=== PATIENT | female | born 1945 | race Caucasian/White ===

== ENCOUNTER 2024-11-01 11:33 | Emergency (ER) | payer MEDICARE, SELFPAY ==
--- NOTE | 2024-11-01 11:34 | ED_ITS ---
HPI - Back Pain/Injury General Chief Complaint: Urogenital-Female Stated Complaint: lower back pain Time Seen by Provider: 11/01/24 11:34 Source: patient Mode of arrival: ambulatory Limitations: no limitations History of Present Illness HPI Narrative: La is a 79-year-old female patient presenting to the clinic today with complaints of right left flank pain, burning with urination, urinary frequency, urinary urgency, and also foul urine odor x2 days. She reports no known fevers, chills, body aches, nausea, vomiting, or diarrhea. Has not noticed any blood in her urine. No history kidney stones in the past. Has taken some Advil for her symptoms. Pain was initially 6/10 before taking the Advil. Related Data Allergies Allergy/AdvReac Type Severity Reaction Status Date / Time codeine Allergy Mild Nausea Verified 11/01/24 11:47 Review of Systems Review of Systems: Pertinent positives per HPI. Patient denies any fever, chills, rash, headache, visual changes, dizziness, cough, runny nose, sore throat, shortness of breath, chest pain, palpitations, nausea, vomiting, diarrhea, constipation, abdominal pain PMFSH Comments At the time of my signature, I reviewed and agree with the nursing past medical, surgical, social, and family history. There is no relevant family history pertinent to the patient complaint. Exam Narrative: General: Well-developed, well nourished, in no apparent distress. Head: Normocephalic, atraumatic. Cardio: Regular rate and rhythm, s1 and s2 normal, no murmur appreciated. Resp: Clear to auscultation bilaterally, no rhonchi, rales, wheezing or rubs. Abdomen: Soft, pliable, bowel sounds present in all quadrants, non-tender to palpation, no organomegly, right CVAT tenderness. Course Course Emergency Course: Portions of this record may have been created with voice recognition software. Level of Care: Express Care Visit Vital Signs Vital signs: Vital Signs Temperature 36.4 C 11/01/24 11:40 Pulse Rate 86 11/01/24 11:40 Respiratory Rate 20 11/01/24 11:40 Blood Pressure 148/100 H 11/01/24 11:40 Pulse Oximetry 96 11/01/24 11:40 Oxygen Delivery Room Air 11/01/24 11:40 Temperature 36.4 C 11/01/24 11:40 Pulse Rate 86 11/01/24 11:40 Respiratory Rate 20 11/01/24 11:40 Blood Pressure 148/100 H 11/01/24 11:40 Pulse Oximetry 96 11/01/24 11:40 Oxygen Delivery Room Air 11/01/24 11:40 Vital signs reviewed Transfer Transfered to: [facility] Transportation: Other (Private car) Transfer rationale: Hyperglycemia/glucosuria- right flank pain Accepting physician: Dr. Lowery Transfer comments: Private car MDM - Back Pain/Injury MDM Narrative Medical decision making narrative: At the time of visit patient is resting comfortably on the exam table. Patient appears to be nontoxic. Complaints of right left flank pain, burning with urination, urinary frequency, urinary urgency, and also foul urine odor x2 days. She reports no known fevers, chills, body aches, nausea, vomiting, or diarrhea. Has not noticed any blood in her urine. No history kidney stones in the past. Has taken some Advil for her symptoms. Pain was initially 6/10 before taking the Advil. On exam patient has mild right CVAT bowel sounds present all 4 quadrants, no abdomen tender to palpation. UA dip ordered. Urinalysis shows 2+ glucose. When asked the patient if she is diabetic she said over a year ago she was tested and her blood sugar was 300 but she controlled the diabetes with diet and got her blood sugars down to 140. States she has gone back to her old diet and states her blood sugars have been high. She is not currently on any anti diabetic medications. Bedside glucose test ordered. Labs: UA dip shows 2+ glucose. Bedside glucose 477 Plan: Patient has right flank pain with glucosuria and hyperglycemia. Recommend transfer to the ER for further evaluation patient agrees to transfer. Patient would like to go to [facility]. Report called to nurse and Dr. Lowery accepts patient for transfer. Patient to transfer via private car. Differential Diagnosis Differential diagnosis: Likely lumbar radiculopathy, sciatica, strain of lumbar region, renal colic, pyelonephritis and other (Hyperglycemia, glucosuria, UTI) Discharge Plan Discharge Clinical Impression: Hyperglycemia, Elevated serum glucose with glucosuria, Acute right flank pain Patient Disposition: Acute Care Hospital Condition: Stable Instructions: Antibiotic Form Patient Language: Mohawk Follow-up/Referrals: Reed,Edwin Barros MD [Primary Care Provider, Unknown] Time of Disposition: 12:20 Quality NIHSS Nursing Documentation ED NIHSS nursing documentation: reviewed/agree
[2024-11-01 11:40] VITALS: BP 148/100; PULSE 86; RESP 20; TEMP 36.4; O2SAT 96
--- OUTSIDE RECORDS SUMMARY | 2024-11-01 11:54 | XMS_ITS | Clinical Summary ---
Author Organization [facility] Address [address] [place] [address] Phone Care Team Providers Care Corporate Director Of Pharmacy Name Role Phone Edwin Del Rio MD Primary Care Provider [phone] Bill Reveles MD Unavailable [phone] Eber Gonzalez MD Unavailable [phone] Allergies Active Allergy Reactions Criticality Noted Date Comments Codeine Itching 05/30/2015 Medications Cholecalciferol (VITAMIN D PO) Take by mouth daily. Active Calcium Carbonate-Vitami n D (CALTRATE 600+D PO) Take by mouth daily. Active pravastatin (PRAVACHOL) 40 MG Tablet Take 40 mg by mouth daily. Active PARoxetine (PAXIL) 20 MG Tablet Take 20 mg by mouth daily. Active Aspirin 81 MG Tablet Take 81 mg by mouth daily. Active anastrozole (ARIMIDEX) 1 MG Tablet Take 1 mg by mouth daily. Active lisinopril (PRINIVIL, ZESTRIL) 40 MG Tablet Take 40 mg by mouth. Active Active Problems Problem Noted Date Diagnosed Date History of cancer chemotherapy 05/27/2017 Overview (05/27/2017): She was initially treated with 6 cycles of Rituxan, Cytoxan, vincristine and prednisone beginning late 2008 and was then placed on maintenance therapy with Rituxan. She has remained DMITRY since Rituxan maintenance therapy was completed 08/23/2011. History of immunotherapy 05/27/2017 Overview (05/27/2017): Rituxan with Cytoxan, vincristine and prednisone beginning late 2008 followed by maintenance Rituxan which she completed 08/23/2011. History of hormone therapy 05/27/2017 Overview (05/27/2017): Tamoxifen August 2010 through August 2015 and September 2016 through February 2017. History of partial mastectomy of left breast Overview (10/09/2016): 05/28/2010 Prophylactic use of anastrozole (Arimidex) 10/09 Overview (03/04/2019): Started February 2017 and replaced tamoxifen which had been started September 2016. History of ductal carcinoma in situ (DCIS) of [facility] 10/09/2016 Overview (10/09/2016): DCIS of her right breast that opted for breast conserving therapy and completed radiotherapy to her right breast 09/06/2016. She was then placed on tamoxifen once again September 2016. Obesity (BMI 30.0-34.9) 10/09/2016 History of therapeutic radiation 07/18/2016 Overview (10/09/2016): Completed left breast radiotherapy 08/07/2010. Completed right breast radiotherapy 09/06/2016. 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 She was then placed on Tamoxifen for 5 years which she completed August 2015. History of basal cell carcinoma of skin 05/30/19 16 Overview (05/27/2017): Left nasal ala 03/2015 treated with surgery alone. 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 She was initially treated with 6 cycles of Rituxan, Cytoxan, vincristine and prednisone and then placed on maintenance therapy with Rituxan. She has remained DMITRY since Rituxan maintenance therapy was completed 08/23/2011. Stargardt's disease Resolved Problems Problem Noted Date Diagnosed Date Resolved Date History of partial mastectomy of right breast 10/10/19 17 03/04/2019 Overview (10/09/2016): 06/14/2016 Acute radiation dermatitis 09/06/2016 0 10/09/2016 Breast cancer of upper-outer quadrant of right female breast 08/12/2016 10/09/2016 Cancer Staging:Clinical stage from 07/18/2016:Stage 0(Tis (DCIS), N0, M0) - Signed by Bill Reveles MD on 08/12/2016 Pathologic stage from 07/18/2016:Stage 0(Tis (DCIS), N0, cM0) - Signed by Bill Reveles MD on 08/12/2016 Immunizations Immunization Administration Dates Next Due Covid-19, Mrna, Lnp-s, PF, 1 00 mcg/0.5 mL Dose (Moderna) 05/09/2020,03/30/2020 Family History Medical History Relation Name Comments Congestive Heart Failure Father Heart Attack Father Skin Cancer Father Diabetes Mother Osteoporosis Sister Relation Name Status Comments Father Mother Sister Alive Social History Tobacco Use Types Packs/Day Years Used Date Smoking Tobacco: Never Smokeless Tobacco: Never Alcohol Use Standard Drinks/Week Comments Yes 0 (1 standard drink = 0.6 oz pure alcohol) Rare occasional social situations. Sexually Active Control Partners Comments Never Comments No Sex and Gender Information Value Date Recorded Sex Assigned at Not on file Legal Sex Female 12:43 AM CDT Gender Identity Not on file Sexual Orientation Not on file Last Filed Vital Signs Vital Sign Reading Time Taken Comments Blood Pressure 189/92 03/04/2019 3:14 PM PRINTER'S ASSISTANT Pulse 81 03/04/2019 3:14 PM PRINTER'S ASSISTANT Temperature 37.2 C (99 F) 03/04/2019 3:14 PM PRINTER'S ASSISTANT Respiratory Rate 20 03/04/2019 3:14 PM PRINTER'S ASSISTANT Oxygen Saturation 97% 03/04/2019 3:14 PM PRINTER'S ASSISTANT Inhaled Oxygen Concentration - - Weight 80.2 kg (176 lb 12.8 oz) 03/04/2019 3:14 PM PRINTER'S ASSISTANT Height 160 cm (5' 3) 03/04/2019 3:14 PM PRINTER'S ASSISTANT Body Mass Index 31.32 03/04/2019 3:14 PM PRINTER'S ASSISTANT Plan of Treatment Health Maintenance Due Date Last Done Comments Hepatitis C Virus (HCV) Screening 1945 Pneumococcal Immunization (50+ years) (2 of 2 - PPSV23, PCV20, or PCV21) 01/31/2017 12/06/2016 Discussion re Stopping Mammograms 2021 Respiratory Syncytial Virus (RSV) Immunization (Adult) (1 - 1-dose 75+ series) 2021 DEXA Bone Density 04/11/2022 04/11/2020 Mammogram 03/18/2024 03/18/2023, 01/24, 02/12/2021, Additional history exists Influenza Immunization (#1) 10/25/202410/25, 11/26/2019, 12/18/2018, Additional history exists SARS-COV-2 Immunization ( season) 2024 12/03/2022, 05/24/2021, 05/01/2021, Additional history exists DTaP/Tdap/Td Immunization Discontinued 06/18/2012 TdaP Immunization Completed 06/18/2012 Pneumococcal Immunization Combined Discontinued 12/06/2016 Zoster Immunization Completed 12/10/2022, 3 Hepatitis B Immunization Aged Out No longer eligible based on patient's age to complete this topic Human Papillomavirus (HPV) Immunization Aged Out No longer eligible based on patient's age to complete this topic Meningococcal Immunization (ACWY) Aged Out No longer eligible based on patient's age to complete this topic Rotavirus Immunization Aged Out No lo nger eligible based on patient's age to complete this topic Procedures Procedure Name Priority Date/Time Associated Diagnosis Comments JENNI SCREENING BILATERAL DIGI MELINDA W CAD W EMERALD Routine 02/08/2020 from Last 3 Months or Most Recently Relevant to Health Maintenance Results * JENNI SCREENING BILATERAL DIGITAL W CAD W EMERALD (02/08/2020) Anatomical Region Laterality Modality breast Bilateral Mammography Edwin Del Rio MD IMG MAMMO ORDERABLES Final R esult from Last 3 Months or Most Recently Relevant to Health Maintenance Insurance MEDICARE [facility] Care Teams Corporate Director Of Pharmacy Relationship Specialty [place] [id number] [facility] [place] [address] PCP - General 12/11/14 [place] [id number] [facility] [place] [address] Consulting Physician Radiation Oncology 05/30/15 [place] [id number] [address] [facility] [address] [place] [address] Consulting Physician General Surgery 07/18/16
--- OUTSIDE RECORDS SUMMARY | 2024-11-01 11:54 | XMS_ITS | Encounter Summary ---
Author Organization [facility] Address [address] [place] [address] Care Team Providers Care Ultrasonic Seaming Machine Operator Name Role Phone Edwin Mcbride MD Primary Care Provider + Reason for Visit * Reason Onset Date Comments Scheduling Appointments 04/10/2020 reminder call for dexa Encounter Details Date Type Department Care Team (Late st Contact Info) Description 04/10/2020 Telephone [facility] [address] [place] [phone] Leora Guaman, [place] Scheduling Appointments (reminder call for dexa) Social History Tobacco Use Types Packs/Day Years Used Date Smoking Tobacco: Never Smokeless Tobacco: Never Alcohol Use Standard Drinks/Week Comments Yes 0 (1 standard drink = 0.6 oz pur e alcohol) Comments No Sex and Gender Information Value Date Recorded Sex Assigned at Not on file Legal Sex Female 1:46 AM LOCKSTITCH WAISTBAND SETTER Gender Identity Not on file Sexual Orientation Not on file documented as of this encounter Plan of Treatment Not on file documented as of this encounter Visit Diagnoses Not on filedocumented in this encounter Additional Health Concerns Infection Onset Date Last Indicated Resolved Time COVID: Suspected 12/30/2023 12/30/2023 12/31/2023 12:25 AM LOCKSTITCH WAISTBAND SETTER documented as of this encounter Care Teams Ultrasonic Seaming Machine Operator Relationship Specialty [place] [id number] [facility] [address] [place] [address] PCP - General 05/24/16 documented as of this encounter
--- OUTSIDE RECORDS SUMMARY | 2024-11-01 11:54 | XMS_ITS | Clinical Summary ---
Author Organization [facility] Address [address] [place] [address] Care Team Providers Care Millwright Helper Name Role Phone Edwin Mcbride MD Primary Care Provider + Allergies Active Allergy Reactions Criticality Noted Date Comments Codeine Itching,Hives,Rash High 04/27/2012 Reaction: Itching, , Medications calcium 500 mg tablet 500 mg. 0 05/11/2010 Active traZODone (DESYREL) 50 mg tablet 50 mg. 0 05/11/2010 Active aspirin 81 mg tablet 81 mg. 0 05/11/2010 Active potassium 99 mg tablet 99 mg. 0 0 05/27/2016 Active PARoxetine (PAXIL) 20 mg tablet take 1 tablet (20MG) by oral route every day 0 01/23/2012 Active naproxen (NAPROSYN) 250 mg tablet take 1 tablet (250MG) by oral route 2 times every day with food 60 0 04/30/2012 Active calcium carbonate (CALTRATE 600) 1,500 mg (600 mg of elemental calcium) tablet 0 01/23/2012 Act erickson lisinopril (PRINIVIL,ZESTRI L) 40 mg tablet Take 1 tablet (40 mg total) by mouth daily Active LORazepam (Ativan) 0.5 mg tabletIndication s:Insomnia, unspecified type Take 1 tablet (0.5 mg total) by mouth nightly as needed for anxiety 3 tablet 12/03/2020 Active ferrous sulfate 325 mg (65 mg of elemental iron) tablet Take 1 tablet (325 mg total) by mouth daily 12/29/2020 Active atorvastatin (LIPITOR) 40 mg tablet Take 1 tablet (40 mg total) by mouth daily 30 tablet 01/02/2024 Active Active Problems Problem Noted Date Diagnosed Date Lightheadedness 12/31/2023 BMI 28.0-28.9,adult 12/31/2023 Unsteady gait 12/31/2023 Benign essential HTN 12/31/2023 Hyperlipidemia 12/31/2023 Mixed anxiety and depressive disorder 12/31/2023 Hypertensive emergency 12/31/2023 History of lymphoma 08/12/2019 Iron deficiency anemia 03/20/2017 Overview (03/20/2017): Added automatically from request for surgery [id number] Malignant neoplasm of breast 05/27/2016 Overview (07/19/2016): Breast cancer Basal cell carcinoma (BCC) of skin of nose 01/18 Encounters Date Type Department Care Team Description 10/06/2024 Orders Only [facility] [address] [place] [address] Medical Office [facility] B [facility] [address] [place] [address] Nehemias Aguilar MD Suspected sleep apnea (Primary Dx); Elevated hemoglobin 09/29/2024 10:30 AM CDT Office Visit [facility] [address] [place] [address] B [facility] [address] [place] [address] Nehemias Aguilar MD Malignant neoplasm of female breast, unspecified estrogen receptor status, unspecified laterality, unspecified site of breast (HCC) (Primary Dx); History of lymphoma; Screening mammogram, encounter for; Elevated hemoglobin 09/29/2024 10:00 AM CDT Lab [address] [place] [address] Malignant neoplasm of female breast, unspecified estrogen receptor status, unspecified laterality, unspecified site of breast (HCC); History of lymphoma; Elevated hemoglobin from Last 3 Months Immunizations Immunization Administration Dates Next Due COVID-19 mRNA (Canesta) 0.3 m L (30 mcg) vaccine (12 years and up) 12/03/2022 Influenza, Quad, Adjuvantate d, Intramuscular 11/26/2019,11/26/2019 Influenza, Quadrivalent, Hig h Dose, Preservative Free, Intrr 11/04/2020 Influenza, Trivalent, Adjuva nted, Intramuscular 12/18/2018,12/18/2018,12/07/2017,12/07 Moderna SARS-CoV-2 Monovalen t Vaccination (12+ YRS) 05/01/2021,05/09/2020,03/30/2020 Pneumococcal Conjugate PCV 13 12/06/2016, 017 Tdap 06/18/2012,06/18/2012 ZOSTER Recombinant 12/10/2022,09/30/2022 Surgical History Surgery Date Site/Laterality Comments CATARACT EXTRACTION Cataract extraction CHOLECYSTECTOMY Cholecystectomy OTHER SURGICAL HISTORY Breast lump: Lumpectomy OTHER SURGICAL HISTORY Finger Cyst: Excision CATARACT EXTRACTION 02/24/1999 - 02/24/2000 Bilateral Cataract extraction CHOLECYSTECTOMY 02/24/1979 - 02/24/1980 Cholecystectomy KNEE ARTHROSCOPY 02/25/2012 - 02/23/2013 Right Arthroscopy knee OTHER SURGICAL HISTORY 02/24/2010 - 02/23/2011 Left Breast lump: Lumpectomy HYSTERECTOMY Hysterectomy COLONOSCOPY 07/26/2015 BREAST BIOPSY positive bx 2010 left and 2017 right OOPHORECTOMY BREAST LUMPECTOMY Bilateral left 2010, right 2016 Medical History Medical History Date Comments Hyperlipidemia Hyperlipidemia Anxiety disorder Anxiety Lymphoma (HCC) 2008 Cancer, lymphoma Hx Other Medical stargardt Hx Other Medical 2007 Finger Cyst Depression Depression Hx Other Medical iron deficiency ; Comments: GDS 05/27/2016 - Breast neoplasm, Tis (DCIS), 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 Lumpectomy Breast neoplasm, Tis (DCIS), 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 Anemia History of radiation therapy History of chemotherapy 2008 lymphoma Breast cancer (HCC) Family History Medical History Relation Name Comments Liver cancer Mother's Sister Diabetes Other 1 Family history of Diabetes mellitus; Heart disease Other 2 Family history of Heart disease; Hypertension Other 3 Family history of Hypertension; Breast cancer Neg Hx Ovarian cancer Neg Hx Thyroid cancer Neg Hx Relation Name Status Comments Mother's Sister Other 1 Other 2 Other 3 Social History Tobacco Use Types Packs/Day Years Used Date Smoking Tobacco: Never Smokeless Tobacco: Never Alcohol Use Standard Drinks/Week Comments Yes 0 (1 standard drink = 0.6 oz pur e alcohol) [facility] Utilities Answer Date Recorded In the past 12 months has e [employer], oil, or [employer] threatened to shut off services in your home? No 01/01/2024 Social Connection and Isolation Panel Answer Date Recorded In a typical week, how many times do you talk on the phone with family, friends, or neighbors? More than three times a week 01/01/2024 How often do you get togethe r with friends or relatives? Three times a week 01/01/2024 How often do you attend chur ch or adventist services? More than 4 times per year 01/01/2024 Do you belong to any clubs o r organizations such as mosque groups, unions, fraternal or athletic groups, or school groups? No 01/01/2024 How often do you attend meet ings of the clubs or organizations you belong to? Never 01/01/2024 Are you , , di vorced, , never , or living with a partner? 01/01/2024 AUDIT-C Answer Date Recorded Q1: How often do you have a drink containing alc ohol? Monthly or less 10/30/2023 Q2: How many drinks containi ng alcohol do you have on a typical day when you are drinking? 1 or 2 10/30/2023 Q3: How often do you have si x or more drinks on one occasion? Never 10/30/2023 Overall Financial Resource Strain (CARDIA) Answe r Date Recorded How hard is it for you to pa y for the very basics like food, housing, medical care, and heating? Not hard at all 01/01/2024 Hunger Vital Sign Answer Date Recorded Within the past 12 months, y ou worried that your food would run out before you got the money to buy more. Never true 01/01/20 24 Within the past 12 months, t he food you bought just didn't last and you didn't have money to get more. Never true 01/01/2024 PRAPARE - Transportation Answer Date Re corded In the past 12 months, has l ack of transportation kept you from medical appointments or from getting medications? No 08/2023 In the past 12 months, has l ack of transportation kept you from meetings, work, or from getting things needed for daily living? No 01/01/2024 Housing Stability Vital Sign Answer Janes e Recorded In the last 12 months, was t here a time when you were not able to pay the mortgage or rent on time? No 01/01/2024 In the past 12 months, how m any times have you moved where you were living? 0 01/01/2024 At any time in the past 12 m [facility], were you homeless or living in a jail (including now)? No 01/01/2024 Personal Safety Answer Date Recorded Have you ever been in or are you currently in a harmful physical or emotional relationship or is someone making you feel afraid or unsafe? Denies 12/31/2023 Comments No Sex and Gender Information Value Date Recorded Sex Assigned at Not on file Legal Sex Female 1:46 AM READING TUTOR Gender Identity Not on file Sexual Orientation Not on file Obstetrics History Para Term AB IAB SAB Ectopic Multiple Livin g Live Births 2 2 2 Date Outcome GA Total Labor Labor/2nd/3rd Weight Sex Type Anes PTL Emily A1 A5 Name Clin Term Term Last Filed Vital Signs Vital Sign Reading Time Taken Comments Blood Pressure 162/86 09/29/2024 10:00 AM CDT Pulse 96 09/29/2024 10:00 AM CDT Temperature 36.2 C (97.2 F) 09/29/2024 10:00 AM CDT Respiratory Rate 20 09/29/2024 10:00 AM CDT Oxygen Saturation 98% 09/29/2024 10:00 AM CDT Inhaled Oxygen Concentration - - Weight 74.1 kg (163 lb 6.4 oz) 09/29/2024 10:00 AM CDT Height 160 cm (5' 3) 09/29/2024 10:00 AM CDT Body Mass Index 28.95 09/29/2024 10:00 AM CDT Plan of Treatment Health Maintenance Due Date Last Done Comments Depression Screening 1945 Hepatitis C Screening 1945 Meningococcal B Vaccine (1 o f 4 - Increased Risk) 1956 Hepatitis B Screening 1964 Well Visit 65+ 06/12/2011 Pneumococcal vaccine 65+ (2 of 2 - PPSV23, PCV20, or PCV21) 01/31/2017 12/06/2016, 12/06/2016 Osteoporosis Screening-Bone Density Scan 04/11/2022 04/11/2020 Covid-19 Vaccine (2023-2 5 season) 2023 12/03/2022, 11/14/2021, 05/24/2021, Additional history exists Influenza Vaccine (#1) 2024 , 11/04/2020, 11/26/2019, Additional history exists Fall Risk Assessment 12/31/2024 01/01/2024 DTaP/Tdap/Td Vaccine (4 - Td or Tdap) 09/06/2031 09/05/2021, 06/18/2012, 06/18/2012 Colon Cancer Screening-CT Colonography Discontinued 08/11/2015, 08/11/2015 Colon Cancer Screening-Colonoscopy Discontinued 08/11/2015, 08/11/2015 Colon Cancer Screening-DNA Stool Discontinued 08/11/19 16, 08/11/2015 Colon Cancer Screening-FIT Discontinued 08/11/2015, Colon Cancer Screening-FOBT Discontinued 08/11/2015, 0 08/11/2015 Colon Cancer Screening-Sigmoidoscopy Discontinued 08/11/2015, 08/11/2015 Colorectal Cancer Screening Discontinued Zoster Vaccine Completed 12/10/2022, 09/30/2022 Breast Cancer Screening-Mammogram Discontinued 05/24/2024, 03/18/2023, 02/11/2022, Additional history exists Procedures Procedure Name Priority Date/Time Associated Diagnosis Comments ERYTHROPOIETIN Routine 09/29/2024 9:45 AM CDT Elevated hemoglobin EGFR Routine 09/29/2024 9:45 AM CDT Malignant neoplasm of female breast, unspecified estrogen receptor status, unspecified laterality, unspecified site of breast (HCC) History of lymphoma DIFFERENTIAL AUTO Routine 09/29/2024 9:4 5 AM CDT Malignant neoplasm of female breast, unspecified estrogen receptor status, unspecified laterality, unspecified site of breast (HCC) History of lymphoma CBC WITH AUTO DIFFERENTIAL Routine 09/29/2024 9:45 AM CDT Malignant neoplasm of female breast, unspecified estrogen receptor status, unspecified laterality, unspecified site of breast (HCC) History of lymphoma COMPREHENSIVE METABOLIC PANEL Routine 09/29/2024 9:45 AM CDT Malignant neoplasm of female breast, unspecified estrogen receptor status, unspecified laterality, unspecified site of breast (HCC) History of lymphoma LACTATE DEHYDROGENASE Routine 09/29/2024 9:45 AM CDT Malignant neoplasm of female breast, unspecified estrogen receptor status, unspecified laterality, unspecified site of breast (HCC) History of lymphoma SCREENING MAMMOGRAM BILATERAL W SANJIV Schedule Routine, Read Routine (OP Routine) 05/24/2024 12:59 PM CDT Screening mammogram, encounter for DEXA AXIAL SKELETON BONE DENSITY 1 OR MORE SITES Schedule Routine, Read Routine (OP Routine) 04/11/2020 12:14 PM READING TUTOR halfway (current) use of aromatase inhibitors Malignant neoplasm of female breast, unspecified estrogen receptor status, unspecified laterality, unspecified site of breast (HCC) COLONOSCOPY IMAGES 08/11/2015 from Last 3 Months or Most Recently Relevant to Health Maintenance Results * eGFR (09/29/2024 9:45 AM CDT) eGFR 73 >=60 mL/min/1. 73 m2 Comment: Interpretive Data Reference Interval Normal >/= 90 mL/min/1.73m2 Mildly decreased* 60 - 89 mL/min/1.73m2 Mildly to moderately decreased 45 - 59 mL/min/1.73m2 Moderately to severely decreased 30 - 44 mL/min/1.73m2 Severely decreased 15 - 29 mL/min/1.73m2 Kidney Failure < 15 mL/min/1.73m2 *Relative to young adult level Estimated glomerular filtration rate is determined by the 2020 CKD-EPI equation recommended by the National Kidney Foundation (A Unifying Approach to GFR Estimation: Recommendations of the NKF-ASK Task Force on Reassessing the Inclusion of Race in Diagnosing Kidney Disease, JASN 2020). The CKD-EPI equation should not be used for patients with unstable renal function and has not been validated in children and those over 70. Current interpretive data was last reviewed 2020. Testing performed by: [facility], [facility], [place], [address] Blood 09/29/2024 9:45 AM CDT 09/29/2024 10:03 AM CDT Keila Seals TERRAZZO SUPERVISOR LAB BLOOD ORDERABLES Final Result [facility] ([place]) [facility] Department [place] [address] * Differential, auto (09/29/2024 9:45 AM CDT) Neutrophil abs 3.66 1.50 - 6.50 K/cumm [facility] ([place]) Comment:Testing performed by : [facility] [address], Medical Office [facility] [address], [place] [address] Imm gran abs 0.01 0.00 - 0.10 K/cumm [facility] ([place]) Comment:Testing performed by : [facility] [address], Medical Office [facility] [address], [place] [address] Lymphocyte abs 1.56 0.80 - 3.30 K/cumm [facility] ([place]) Comment:Testing performed by : [facility] [address], Medical Office [facility] [address], [place] [address] Monocyte abs 0.47 0.20 - 0.80 K/cumm [facility] ([place]) Comment:Testing performed by : [facility] [address], Medical Office [facility] [address], [place] [address] Eosinophil abs 0.12 0.00 - 0.50 K/cumm [facility] ([place]) Comment:Testing performed by : [facility] [address], Medical Office [facility] [address], [place] [address] Basophil abs 0.04 0.00 - 0.10 K/cumm [facility] ([place]) Comment:Testing performed by : [facility] [address], Medical Office [facility] [address], [place] [address] Neutrophil pct 62.5 % [facility] ([place]) Comment: Interpretive Data Percent cell count reference ranges are not reported, since discordance with absolute values may lead to misinterpretation of CBC data. Current Interpretive Data was last revised on 2022. Testing performed by: [facility] [address], Medical Office [address], [place] [address] Imm gran pct 0.2 % [facility] ([place]) Comment: Interpretive Data Percent cell count reference ranges are not reported, since discordance with absolute values may lead to misinterpretation of CBC data. Current Interpretive Data was last revised on 2022. Testing performed by: [facility] [address], Medical Office [facility] [address], [place] [address] Lymphocyte pct 26.6 % [facility] ([place]) Comment: Interpretive Data Percent cell count reference ranges are not reported, since discordance with absolute values may lead to misinterpretation of CBC data. Current Interpretive Data was last revised on 2022. Testing performed by: [facility] [address], Medical Office [facility] [address], [place] [address] Monocyte pct 8.0 % [facility] ([place]) Comment: Interpretive Data Percent cell count reference ranges are not reported, since discordance with absolute values may lead to misinterpretation of CBC data. Current Interpretive Data was last revised on 2022. Testing performed by: [facility] [address], Medical Office [facility] [address], [place] [address] Eosinophil pct 2.0 % [facility] ([place]) Comment: Interpretive Data Percent cell count reference ranges are not reported, since discordance with absolute values may lead to misinterpretation of CBC data. Current Interpretive Data was last revised on 2022. Testing performed by: [facility] [address], Medical Office [facility] [address], [place] [address] Basophil pct 0.7 % [facility] ([place]) Comment: Interpretive Data Percent cell count reference ranges are not reported, since discordance with absolute values may lead to misinterpretation of CBC data. Current Interpretive Data was last revised on 2022. Testing performed by: [facility] [address], Medical Office [facility] [address], [place] [address] Blood 09/29/2024 9:45 AM CDT 09/29/2024 9:49 AM CDT us Keila Seals TERRAZZO SUPERVISOR LAB BLOOD ORDERABLES Final Result [facility] ([place]) [address] [facility] Department [place] [address] * (ABNORMAL) CBC with auto differential (09/29/2024 9:45 AM CDT) WBC 5.86 3.80 - 9.90 K/cumm [facility] ([place]) Comment:Testing performed by : [facility] [address], Medical Office [facility] [address], [place] [address] Hgb 16.0(H) 11.9 - 15.5 g/dL [facility] ([place]) Comment:Testing performed by : [facility] [address], Medical Office [facility] [address], [place] [address] Hct 47.0(H) 35.6 - 45.5 % [facility] ([place]) Comment:Testing performed by : [facility] [address], Medical Office [facility] [address], [place] [address] Plt 211 150 - 400 K/cumm [facility] ([place]) Comment:Testing performed by : [facility] [address], Medical Office [address], [place] [address] MPV 9.7 9.1 - 12.3 fL [facility] ([place]) Comment:Testing performed by : [facility] [address], Medical Office [address], [place] [address] RBC 5.49(H) 3.90 - 5.20 M/cumm [facility] ([place]) Comment:Testing performed by : [facility] [address], Medical Office [address], [place] [address] MCV 85.6 81.3 - 96.4 fL [facility] ([place]) Comment:Testing performed by : [facility] [address], Medical Office [address], [place] [address] MCH 29.1 27.1 - 33.3 pg [facility] ([place]) Comment:Testing performed by : [facility] [address], Medical Office [address], [place] [address] MCHC 34.0 32.3 - 35.7 g/dL [facility] ([place]) Comment:Testing performed by : [facility] [address], Medical Office [address], [place] [address] RDW CV 13.0 11.1 - 14.9 % [facility] ([place]) Comment:Testing performed by : [facility] [address], Medical Office [facility] [address], [place] [address] RDW SD 41.4 35.7 - 48.1 fL [facility] ([place]) Comment:Testing performed by : [facility] [address], Medical Office [facility] [address], [place] [address] Blood 09/29/2024 9:45 AM CDT 09/29/2024 9:49 AM CDT us Keila Seals TERRAZZO SUPERVISOR LAB BLOOD ORDERABLES Final Result [facility] ([place]) [facility] Department [place] [employer] [address] * Erythropoietin (09/29/2024 9:45 AM CDT) Erythropoietin 7.0 2.6 - 18.5 mIUnits/mL [place] ref Lab Comment: Test Performed by: [facility] [address] [place] [address] Media Account Executive: Betty Duncan Ph.D.; CLIA# [id number] Testing performed by: [facility], [facility], [place], [address] Blood 09/29/2024 9:45 AM CDT 09/29/2024 11:47 AM CDT us Keila Seals TERRAZZO SUPERVISOR LAB BLOOD ORDERABLES Final Result [facility] ([place]) 1 [facility] Department [place] [address] [place] ref Lab * Lactate dehydrogenase (LD) (09/29/2024 9:45 AM CDT) Lactate dehydrogenase (LDH) 192 100 - 250 Units/L [facility] ([place]) Blood 09/29/2024 9:45 AM CDT 09/29/2024 10:03 AM CDT Keila Seals TERRAZZO SUPERVISOR LAB BLOOD ORDERABLES Final Result [facility] ([place]) [address] [facility] Department [place] [address] * (ABNORMAL) Comprehensive metabolic panel (09/29/2024 9:45 AM CDT) Sodium 139 135 - 145 mmol/L [facility] ([place]) Potassium, pl 4.0 3.3 - 4.9 mmol/L [facility] ([place]) Chloride 99 97 - 110 mmol/L [facility] ([place]) CO2 24 22 - 32 mmol/L [facility] ([place]) Anion gap 16(H) 2 - 15 mmol/L [facility] ([place]) BUN 12 6 - 25 mg/dL [facility] ([place]) Creatinine 0.82 0.60 - 1.10 mg/dL [facility] ([place]) Glucose 472(C) 70 - 199 mg/dL [facility] ([place]) Comment: Critical Result called by [id number] at 2024-09-29 10:35:14. Result Read Back by Jaxon devi (ifs) Interpretive Data Fasting glucose >/= 126 mg/dl is diagnostic for diabetes. Fasting is defined as no caloric intake for at least 8 hours. Fasting glucose between 100 mg/dl to 125 mg/dl is diagnostic of prediabetes. In a patient with classic symptoms of hyperglycemia or hyperglycemic crisis, a random glucose >/= 200 mg/dl is diagnostic for diabetes. In the absence of unequivocal hyperglycemia, results should be confirmed by repeat testing. The classification and Diagnosis of Diabetes Diabetes Care 2021; 46: S19-S40. Current interpretive data was last revised 2022. Calcium 10.4(H) 8.5 - 10.3 mg/dL [facility] ([place]) Bilirubin, total 0.7 0.1 - 1.2 mg/dL [facility] ([place]) Protein, pl 7.5 6.5 - 8.5 g/dL [facility] ([place]) Albumin 4.7 3.5 - 5.0 g/dL [facility] ([place]) Alk phos 109 40 - 130 Units/L [facility] ([place]) ALT 33 7 - 45 Units/L [facility] ([place]) AST 27 10 - 45 Units/L [facility] ([place]) Blood 09/29/2024 9:45 AM CDT 09/29/2024 10:03 AM CDT us Keila Seals TERRAZZO SUPERVISOR LAB BLOOD ORDERABLES Final Result [facility] ([place]) 1 [facility] Department [place] [address] * Screening Mammogram Bilateral W Sanjiv (05/24/2024 12:59 PM CDT) Anatomical Region Laterality Modality Breast Bilateral Mammography 05/24/2024 1:39 PM CDT Impressions 05/24/2024 1:39 PM CDT There is no mammographic evidence of malignancy. The patient may continue screening mammography as per ACR guidelines. FINAL ASSESSMENT: BI-RADS 2 - Benign Findings Electronically signed by: Ludivina Santizo M.D. Narrative 05/24/2024 1:39 PM CDT EXAMINATION: BILATERAL SCREENING MAMMOGRAM WITH TOMOGRAPHY HISTORY: Bilateral lumpectomy/lumpectomies. COMPARISON(S): 2023, 2022, and 2021 TECHNIQUE: Full-field 2D and digital breast tomosynthesis (DBT) images were obtained. CAD was utilized. BREAST PARENCHYMAL COMPOSITION: There are scattered areas of fibroglandular density. FINDINGS: There are postsurgical changes in the lumpectomy/partial mastectomy beds. There are no suspicious masses. No suspicious calcifications are seen. There is no unexpected architectural distortion. There is no skin thickening seen. There are no mammographically abnormal lymph nodes seen in the axillae or elsewhere. us Self Screening Mammogram IMG MAMMO PROCEDURES Fi nal Result * Dexa Axial Skeleton Bone Density 1 or 2 Site (04/11/2020 12:14 PM READING TUTOR) Anatomical Region Laterality Modality Body N/A Other 04/11/2020 12:1 6 PM READING TUTOR Impressions 04/11/2020 12:35 PM READING TUTOR 1. Low bone mass (osteopenia) by WHO criteria. 2. The World Health Organization fracture risk assessment tool (FRAX) indicates that the 10 year probability for a major osteoporotic fracture is 9.4% and the 10 year probability for a hip fracture is 1.4%. GENERAL GUIDELINES: According to WHO guidelines, a T score of -1.0 or greater is normal, between -1.0 to -2.5 is osteopenia, and -2.5 or less is osteoporosis. Z score (instead of T score) is preferred for pediatric, young adults, premenopausal women and men under age of 50 years. In these patients, a Z score greater than or equal to -2.0 is considered to be in the expected range. For our facility, change in BMD of greater than 5% is considered statistically significant. General Recommendations: 1. Consider an evaluation for secondary causes of osteoporosis in patients with low bone density. 2. All patients should be counseled on adequate intake of calcium (1200 mg/day), vitamin D (600-800 IU daily) and exercise. 3. The National Osteoporosis Foundation (NOF) guidelines recommend initiating pharmacological therapy, in addition to calcium, vitamin D and exercise, to reduce fracture risk when: a. T-score less than or equal to -2.5 after secondary causes excluded. b. T-score between -1.0 and -2.5 with secondary causes associated with high risk of fracture. c. 10-year probability of hip fracture more than or equal to 3% (based on FRAX score). d. 10-year probability of major osteoporosis related fracture more than or equal to 20% (based on FRAX score). Followup: People with diagnosed cases of osteoporosis or at high risk for fracture should have regular bone mineral density tests. For patients eligible for Medicare, routine testing is allowed once every 2 years. The testing frequency can be increased to one year for patients who have rapidly progressive disease or those who are receiving long-term steroid therapy. Electronically signed by: Nickolas Mcintosh M.D. Narrative 04/11/2020 12:35 PM READING TUTOR COMPLETION DATE: 04/11/2020 12:30 PM ORDERING HEALTHCARE PROVIDER: KEILA SEALS STUDY DESCRIPTION: DEXA AXIAL SKELETON BONE DENSITY 1 OR MORE SITES CLINICAL INDICATIONS: 74 year old post-menopausal female, screening for osteoporosis. COMPARISON: None available. TECHNIQUE: Dual x-ray absorptiometry (DEXA) was performed using Hologic system. Bone mineralization and T score are reported. FINDINGS: Lumbar spine Bone mineral density: 1.126 g/cm2 T-score: 0.7 Left hip Total bone mineral density: 0.979 g/cm2 Total hip T-score: 0.3 Femoral neck bone mineral density: 0.715 g/cm2 Femoral neck T-score: -1.2 Procedure Note Nickolas Mcintosh MD - 04/11/2020 COMPLETION DATE: 04/11/2020 12:30 PM ORDERING HEALTHCARE PROVIDER: KEILA SEALS STUDY DESCRIPTION: DEXA AXIAL SKELETON BONE DENSITY 1 OR MORE SITES CLINICAL INDICATIONS: 74 year old post-menopausal female, screening for osteoporosis. COMPARISON: None available. TECHNIQUE: Dual x-ray absorptiometry (DEXA) was performed using Hologic system. Bone mineralization and T score are reported. FINDINGS: Lumbar spine Bone mineral density: 1.126 g/cm2 T-score: 0.7 Left hip Total bone mineral density: 0.979 g/cm2 Total hip T-score: 0.3 Femoral neck bone mineral density: 0.715 g/cm2 Femoral neck T-score: -1.2 IMPRESSION: 1. Low bone mass (osteopenia) by WHO criteria. 2. The World Health Organization fracture risk assessment tool (FRAX) indicates that the 10 year probability for a major osteoporotic fracture is 9.4% and the 10 year probability for a hip fracture is 1.4%. GENERAL GUIDELINES: According to WHO guidelines, a T score of -1.0 or greater is normal, between -1.0 to -2.5 is osteopenia, and -2.5 or less is osteoporosis. Z score (instead of T score) is preferred for pediatric, young adults, premenopausal women and men under age of 50 years. In these patients, a Z score greater than or equal to -2.0 is considered to be in the expected range. For our facility, change in BMD of greater than 5% is considered statistically significant. General Recommendations: 1. Consider an evaluation for secondary causes of osteoporosis in patients with low bone density. 2. All patients should be counseled on adequate intake of calcium (1200 mg/day), vitamin D (600-800 IU daily) and exercise. 3. The National Osteoporosis Foundation (NOF) guidelines recommend initiating pharmacological therapy, in addition to calcium, vitamin D and exercise, to reduce fracture risk when: a. T-score less than or equal to -2.5 after secondary causes excluded. b. T-score between -1.0 and -2.5 with secondary causes associated with high risk of fracture. c. 10-year probability of hip fracture more than or equal to 3% (based on FRAX score). d. 10-year probability of major osteoporosis related fracture more than or equal to 20% (based on FRAX score). Followup: People with diagnosed cases of osteoporosis or at high risk for fracture should have regular bone mineral density tests. For patients eligible for Medicare, routine testing is allowed once every 2 years. The testing frequency can be increased to one year for patients who have rapidly progressive disease or those who are receiving long-term steroid therapy. Electronically signed by: Nickolas Mcintosh M.D. Keila Seals NP IMG DXA PROCEDURES Final R esult * COLONOSCOPY IMAGES (08/11/2015) Anatomical Region Laterality Modality Other Narrative 08/11/2015 Ordered by an unspecified provider. Historical Provider GI PROCEDURE ORDERABLES F inal Result from Last 3 Months or Most Recently Relevant to Health Maintenance Insurance MEDICARE [facility] MEDICARE [facility] MEDICARE [facility] Advance Directives For more information, please contact: [phone] * Full Code (Latest Code Status on File) Date Activated Date Inactivated Comments 12/31/2023 1:02 AM 01/01/2024 5:11 PM Care Teams Millwright Helper Relationship Specialty [place] [id number] [facility] [address] [place] [address] PCP - General 05/24/16
--- OUTSIDE RECORDS SUMMARY | 2024-11-01 11:54 | XMS_ITS | Encounter Summary ---
Author Organization [facility] Address [address] [place] [address] Phone Care Team Providers Care Financial Compliance Manager Name Role Phone Edwin Mcbride MD Primary Care Provider + Encounter Details Date Type Department Care Team (Late st Contact Info) Description 03/12/2017 Orders Only [facility] ProviderNeyda MD [facility] [place] [address] Social History Tobacco Use Types Packs/Day Years Used Date Smoking Tobacco: Never Smokeless Tobacco: Never Alcohol Use Standard Drinks/Week Comments Yes 0 (1 standard drink = 0.6 oz pur e alcohol) Comments Unknown Sex and Gender Information Value Date Recorded Sex Assigned at Not on file Legal Sex Female 1:46 AM STAFF RESEARCH ASSOCIATE Gender Identity Not on file Sexual Orientation Not on file documented as of this encounter Plan of Treatment Not on file documented as of this encounter Procedures Procedure Name Priority Date/Time Associated Diagnosis Comments DISCHARGE LABORATORY CUMULATIVE REPORT 03/12/2017 12:00 AM STAFF RESEARCH ASSOCIATE documented in this encounter Results * DISCHARGE LABORATORY CUMULATIVE REPORT (03/12/2017 12:00 AM STAFF RESEARCH ASSOCIATE) Narrative 03/12/2017 12:00 AM STAFF RESEARCH ASSOCIATE Ordered by an unspecified provider. Historical Provider LAB BLOOD ORDERABLES Mami l Result documented in this encounter Visit Diagnoses Not on filedocumented in this encounter Additional Health Concerns Infection Onset Date Last Indicated Resolved Time COVID: Suspected 12/30/2023 12/30/2023 12/31/2023 12:25 AM STAFF RESEARCH ASSOCIATE documented as of this encounter Care Teams Financial Compliance Manager Relationship Specialty [place] [id number] [facility] [address] [place] [address] PCP - General 05/24/16 documented as of this encounter
--- OUTSIDE RECORDS SUMMARY | 2024-11-01 11:54 | XMS_ITS | Encounter Summary ---
Author Organization [facility] Address [address] [place] [address] Care Team Providers Care Certified Drug Counselor Name Role Phone Edwin Mcbride MD Primary Care Provider + Encounter Details Date Type Department Care Team (Late st Contact Info) Description 04/03/2018 Orders Only [facility] Physicians [address] [facility] [address] [place] [address] Aga Floyd, ARCHIVAL STUDIES PROFESSOR [address] [facility] [facility] [address] [place] [address] Social History Tobacco Use Types Packs/Day Years Used Date Smoking Tobacco: Never Smokeless Tobacco: Never Alcohol Use Standard Drinks/Week Comments Yes 0 (1 standard drink = 0.6 oz pur e alcohol) Comments Unknown Sex and Gender Information Value Date Recorded Sex Assigned at Not on file Legal Sex Female 1:46 AM DENTAL BILLER Gender Identity Not on file Sexual Orientation Not on file documented as of this encounter Plan of Treatment Not on file documented as of this encounter Visit Diagnoses Not on filedocumented in this encounter Additional Health Concerns Infection Onset Date Last Indicated Resolved Time COVID: Suspected 12/30/2023 12/30/2023 12/31/2023 12:25 AM DENTAL BILLER documented as of this encounter Care Teams Certified Drug Counselor Relationship Specialty [place] [address] [facility] [address] [place] [address] PCP - General 05/24/16 documented as of this encounter
--- OUTSIDE RECORDS SUMMARY | 2024-11-01 11:54 | XMS_ITS | Clinical Summary ---
Author Organization [facility] Address [address] [place] [address] Care Team Providers Care Photovoltaic Power Systems Engineer Name Role Phone Edwin Del Rio MD Primary Care Provider [phone] Allergies Active Allergy Reactions Criticality Noted Date Comments Codeine Hives,Itching,Rash High 04/27/2012 Medications ferrous sulfate 325 mg (65 mg iron) tablet 0 Active lisinopriL (PRINIVIL) 40 mg tablet Take 40 mg by mouth daily. Active pravastatin (PRAVACHOL) 40 mg tablet Take 40 mg by mouth daily with supper. Active aspirin-calcium carbonate 81 mg-300 mg calcium(777 mg) Tablet Aspirin 81 MG Oral Tablet QTY: 0 tablet Days: 0 Refills: 0 Written: 05/16/15 Patient Instructions: 6 Active PARoxetine HCl (PAXIL) 20 mg tablet PARoxetine HCl 20 MG Oral Tablet QTY: 0 not specified Days: 0 Refills: 0 Written: 12/10/10 Patient Instructions: 1 Active anastrozole (ARIMIDEX) 1 mg tablet Anastrozole 1 MG Oral Tablet QTY: 0 tablet Days: 0 Refills: 0 Written: 05/26/17 Patient Instructions: 8 Active cholecalciferol , vitamin D3, (CHOLECALCIFERO L, VITD3,, BULK,) 100,000 unit/gram Powder Take by mouth. Activ e Active Problems No known active problems Social History Tobacco Use Types Packs/Day Years Used Date Smoking Tobacco: Never Comments Unknown Sex and Gender Information Value Date Recorded Sex Assigned at Not on file Legal Sex Female 2:21 PM CDT Gender Identity Not on file Sexual Orientation Not on file Last Filed Vital Signs Vital Sign Reading Time Taken Comments Blood Pressure 132/86 07/15/2019 11:25 AM CDT Pulse 77 07/15/2019 11:25 AM CDT Temperature 36.8 C (98.3 F) 06/15/2019 11:03 AM CDT Respiratory Rate - - Oxygen Saturation - - Inhaled Oxygen Concentration - - Weight 74.4 kg (164 lb) 07/15/2019 11:25 AM CDT Height 160 cm (5' 3) 07/15/2019 11:25 AM CDT Body Mass Index 29.05 07/15/2019 11:25 AM CDT Plan of Treatment Health Maintenance Due Date Last Done Comments ZOSTER VACCINE (1 of 2) 1964 OSTEOPOROSIS SCREENING 06/12/2011 PNEUMOCOCCAL VACCINE 50+ YEA RS (2 of 2 - PPSV23, PCV20, or PCV21) 01/31/2017 12/06/2016 RSV VACCINE (60+ or ) (1 - 1-dose 75+ series) 2021 DTAP/TDAP/TD VACCINES (2 - Td or Tdap) 06/18/2022 INFLUENZA VACCINE (#1) 2024 12/18/2018, 2017 Insurance MEDICARE PART A AND B [facility] [id number] Care Teams Photovoltaic Power Systems Engineer Relationship Specialty Start Date End Date Edwin Del Rio MD PCP - General Internal Medicine 05/27/19
[2024-11-01 11:56] LABS: EDUAAPPEAR Cloudy; EDUABILI Negative (Negative); EDUABLOOD Negative (Negative); EDUACOLOR1 Yellow; EDUAGLUCOSE 2+ (Negative); EDUAKETONE Negative (Negative); EDUALEUKO Negative (Negative); EDUANITRATE Negative (Negative); EDUAPH 5.5; EDUAPROTEIN Negative (Negative); EDUASPGRAVITY 1.010; EDUAUROBILI 0.2
== END 2024-11-01 12:20 | disposition short-term general hospital (02) ==
PROVIDERS: Emergency Provider Nurse Practitioner Family; PCP Internal Medicine Geriatric Medicine
DX: R73.9 Hyperglycemia, unspecified (principal); R81 Glycosuria; R10.9 Unspecified abdominal pain; I10 Essential (primary) hypertension; E78.00 Pure hypercholesterolemia, unspecified; F41.9 Anxiety disorder, unspecified; Z85.3 Personal history of malignant neoplasm of breast; Z85.72 Personal history of non-Hodgkin lymphomas
CPT/HCPCS: 81003; 82948; 99212; G0463